=== PATIENT | female | born 1945 | race Caucasian/White ===

== ENCOUNTER 2016-09-09 07:29 | Observation (INO) | payer MEDICARE, OTHER ==
[~2016-09-09] VITALS: Ht 167.6 cm; Wt 80.9 kg
[~2016-09-09 07:29] MED LIST: CeFAZolin 2 GM/DEXTROSE 0 ML IV ONE; RINGERS SOLUTION,LACTATED 1,000 ML IV ONE
[2016-09-09] MEDS ORDERED: OXYB15TA PO (08:01)
[2016-09-09] MEDS ORDERED: HYDR25TA PO (08:01)
[2016-09-09] MEDS ORDERED: LOVA20 PO (08:01)
[2016-09-09] MEDS ORDERED: CLINDAMYCIN 900 MG/D5% WATER 50 ML IV ONE (08:30)
[2016-09-09] MEDS ORDERED: CeFAZolin 2 GM/DEXTROSE 50 ML IV ONE (08:30)
[2016-09-09] MEDS ORDERED: SCOPOLAMINE HYDROBROMIDE 1.5 MG PATCH TD ONE (10:00)
[2016-09-09] MEDS ORDERED: MEPERIDINE-PF 25 MG/ML SYRINGE IVP PRN (10:00)
[2016-09-09] MEDS ORDERED: FentaNYL CITRATE-PF 100 MCG/2 ML VIAL IVP PRN (10:00)
[2016-09-09] MEDS ORDERED: ZOLPIDEM TARTRATE 5 MG TABLET PO PRN (10:00)
[2016-09-09] MEDS ORDERED: PROMETHAZINE HCL 25 MG/ML VIAL IM PRN (10:00)
[2016-09-09] MEDS ORDERED: HYDROmorphone 2 MG/ML SYRINGE IVP PRN ×2 (10:00)
[2016-09-09] MEDS ORDERED: CYCLOBENZAPRINE HCL 10 MG TABLET PO PRN (10:00)
[2016-09-09] MEDS ORDERED: ONDANSETRON HCL 4 MG/2 ML VIAL IVP PRN ×2 (10:00→10:15)
[2016-09-09] MEDS ORDERED: VANCOMYCIN HCL 1 GM/VIAL ONE (10:08)
[2016-09-09] MEDS ORDERED: BENZOCAINE/MENTHOL LOZENGE [8 LOZENGES/PACKET] PO PRN (10:15)
[2016-09-09] MEDS ORDERED: ZOLPIDEM TARTRATE 10 MG TABLET PO PRN (10:15)
[2016-09-09] MEDS ORDERED: DiphenhydrAMINE HCL 50 MG/ML VIAL IVP PRN (10:15)
[2016-09-09] MEDS ORDERED: DEXAMETHASONE SOD PHOS 4 MG/ML VIAL IVP PRN (10:15)
[2016-09-09] MEDS: BUPIVACAINE HCL/PF 0.5% 30 ML VIAL ONE ×2 (10:31→10:48)
[2016-09-09] MEDS ORDERED: RINGERS SOLUTION,LACTATED 1,000 ML IV ONE (10:55)
[2016-09-09] MEDS ORDERED: KETOROLAC TROMETHAMINE 60 MG/2 ML VIAL IM ONE (12:00)
[2016-09-09] MEDS ORDERED: METOCLOPRAMIDE HCL 5 MG/ML 2 ML VIAL IVP ONE (12:00)
[2016-09-09] MEDS ORDERED: SUCCINYLCHOLINE CHLORIDE 20 MG/ML 10 ML VIAL IVP ONE (12:00)
[2016-09-09] MEDS ORDERED: MIDAZOLAM HCL 2 MG/2 ML VIAL IVP ONE (12:00)
[2016-09-09] MEDS ORDERED: MORPHINE SULFATE/PF 0.5 MG/ML 10 ML AMP IVP ONE (12:00)
[2016-09-09] MEDS ORDERED: LIDOCAINE HCL/PF 2% 5 ML VIAL INJ ONE (12:00)
[2016-09-09] MEDS ORDERED: FentaNYL CITRATE-PF 250 MCG/5 ML VIAL IVP ONE (12:00)
[2016-09-09] MEDS ORDERED: DEXAMETHASONE SOD PHOS 4 MG/ML VIAL IVP ONE (12:00)
[2016-09-09] MEDS ORDERED: ONDANSETRON HCL 4 MG/2 ML VIAL IVP ONE (12:00)
[2016-09-09] MEDS ORDERED: PROPOFOL 1% 20 ML VIAL IVP ONE (12:00)
[2016-09-09 13:00] VITALS: BP 120/67
[2016-09-09 17:12] VITALS: BP 130/75
[2016-09-09] MEDS: OXYGEN THERAPY IH SCH (20:00)
[2016-09-09 20:10] VITALS: BP 126/70
[2016-09-09] MEDS ORDERED: LOVASTATIN 20 MG TABLET PO SCH (21:00)
[2016-09-09 22:54] VITALS: BP 140/63
[2016-09-09] MEDS: TraMADol HCL 50 MG TABLET PO PRN (22:54)
[2016-09-09 23:55] VITALS: BP 120/72
[2016-09-10] MEDS: TraMADol HCL 50 MG TABLET PO PRN ×2 (04:38→10:49)
[2016-09-10 05:28] LABS: BASOPHILS % (AUTO) 0.2 % (0.0-2.0); EOSINOPHILS % (AUTO) 0 % (1.0-6.0); HEMATOCRIT 35.6 % (36-46); HEMOGLOBIN 12.1 g/dL (12.0-16.0); MEAN CORPUSCULAR HEMOGLOBIN 31.7 pg (26.0-34.0); MEAN CORPUSCULAR HGB CONC 33.9 G/dL (31.0-37.0); MEAN CORPUSCULAR VOLUME 93 fL (80-100); MONOCYTES # (AUTO) 0.4 K/uL (0.1-1.0); MONOCYTES % (AUTO) 3.6 % (2.0-9.0); NEUTROPHILS # (AUTO) 9.7 K/uL (1.8-7.7); PLATELET COUNT (AUTO) 237 K/uL (150-450); RED BLOOD CELL COUNT(AUTO) 3.81 MIL/uL (4.00-5.20); RED CELL DISTRIBUTION WIDTH 12.6 % (11.5-14.5); WHITE BLOOD COUNT (AUTO) 11.1 K/uL (4.5-11.0)
[2016-09-10 05:41] LABS: NEUTROPHILS % (AUTO) 87.2 % (40.0-70.0)
[2016-09-10 05:43] LABS: ANION GAP 8 mmol/L (8-16); CALCIUM, TOTAL 8.9 mg/dL (8.8-10.5); CARBON DIOXIDE 28 mmol/L (22-29); CHLORIDE 101 mmol/L (98-107); CREATININE 0.86 mg/dL (0.60-1.30); GLOMERULAR FILTR. RATE CALC > 60 mL/min (>60); SODIUM SERUM 137 mmol/L (136-145); UREA NITROGEN, BLOOD 19 mg/dL (7-18)
[2016-09-10] MEDS: OXYGEN THERAPY IH SCH (08:00)
[2016-09-10 08:39] VITALS: BP 129/66
[2016-09-10] MEDS ORDERED: OXYBUTYNIN CHLORIDE 5 MG ER TABLET PO SCH (09:00)
[2016-09-10] MEDS ORDERED: HYDROCHLOROTHIAZIDE 25 MG TABLET PO SCH (09:00)
[2016-09-10 10:51] VITALS: BP 130/66
== END 2016-09-10 12:54 | disposition home or self-care (01) ==
LOC: 4E 07:29
PROVIDERS: ADMIT Internal Medicine; ATTEND Orthopaedic Surgery Orthopaedic Surgery of the Spine
DX: M48.06 Spinal stenosis, lumbar region (principal); I10 Essential (primary) hypertension; E78.5 Hyperlipidemia, unspecified; M21.379 Foot drop, unspecified foot; R32 Unspecified urinary incontinence; Z96.659 Presence of unspecified artificial knee joint
CPT/HCPCS: 36415; 63030; 80048; 85025; 87081; 96374; 97110 ×2; 97116 ×2; 97162; 97165; G0238; G0378 ×2; G8978; G8979; G8987; G8988; G8989; J0330; J0690; J1100; J1885; J2250; J2274; J2405; J2704; J2765; J3010; J3370; J3490 ×3; J7120